=== PATIENT | male | born 1970 | race Caucasian/White ===

== ENCOUNTER 2021-11-09 13:51 | Emergency (ER) | payer MEDICAID ==
[~2021-11-09] VITALS: Ht 190.5 cm; Wt 108.9 kg
[2021-11-09 15:23] VITALS: BP_SYST 151
--- NOTE | 2021-11-09 15:28 | NUR ---
Dr. Espinosa in triage examining patient
[2021-11-09] MEDS ORDERED: HYDROcodone/ACETAMIN 10-325 MG TAB PO ONE (16:00)
--- NOTE | 2021-11-09 16:10 | NUR ---
Immobolized pt.'s shoulder with a sling.
--- NOTE | 2021-11-09 16:11 | NUR ---
[facility]
--- NOTE | 2021-11-09 16:11 | NUR ---
Patient complaining of left shoulder pain after trip and fall on concrete 2 days ago, Patient arrived with sling. Pain /. No ROM.
[2021-11-09] MEDS ORDERED: IBUP-1969 PO (16:13)
[2021-11-09] MEDS ORDERED: OXYC-133 PO (16:13)
[2021-11-09 17:08] VITALS: BP_SYST 142
--- NOTE | 2021-11-09 17:08 | NUR ---
Patient given written and verbal discharge instructions and verbalizes understanding. ER MD discussed with patient the results and treatment provided. Patient in stable condition. ID arm band removed. IV catheter removed intact and dressing applied, no active bleeding. Rx of IBUPROFEN AND PERCOCET given. Patient educated on pain management and to follow up with PMD. Pain Scale 4/10 Opportunity for questions provided and answered. Medication side effect fact sheet provided.
== END 2021-11-09 17:08 | disposition home or self-care (01) ==
LOC: SED 13:51
DX: S42.292A Other displaced fracture of upper end of left humerus, initial encounter for closed fracture (principal); W01.0XXA Fall on same level from slipping, tripping and stumbling without subsequent striking against object, initial encounter; Y93.89 Activity, other specified; Y92.89 Other specified places as the place of occurrence of the external cause; Y99.8 Other external cause status
CPT/HCPCS: 73030; 99283